=== PATIENT | female | born 1965 | race Caucasian/White ===

== ENCOUNTER 2023-05-27 17:11 | Inpatient (IN) | payer OTHER ==
[~2023-05-27] VITALS: Ht 165.1 cm; Wt 95.9 kg
[2023-05-27 17:11] VITALS: BP_SYST 145; PULSE 94; RESP 18; TEMP 97.6; O2SAT 99
[2023-05-27 18:33] LABS: EOSINOPHILS # (AUTO) 0.1 K/uL (0.0-0.4); LYMPHOCYTES # (AUTO) 2.6 K/uL (1.0-5.5); NEUTROPHILS # (AUTO) 14.6 K/uL (1.8-7.7); RED CELL DISTRIBUTION WIDTH 13.4 % (9.0-15.0); WHITE BLOOD COUNT (AUTO) 18.3 K/uL (4.8-10.8)
[2023-05-27 18:37] LABS: BASOPHILS # (AUTO) 0.1 K/uL (0.0-0.2); BASOPHILS % (AUTO) 0.4 % (0.0-2.0); EOSINOPHILS % (AUTO) 0.4 % (0.0-4.0); HEMATOCRIT 42.8 % (36-48); HEMOGLOBIN 14.6 g/dL (12.0-16.0); MEAN CORPUSCULAR HEMOGLOBIN 28 pg (27-31); MEAN CORPUSCULAR HGB CONC 34 % (32-36); MEAN CORPUSCULAR VOLUME 82 fL (79.0-98.0); MONOCYTES % (AUTO) 5.7 % (1.7-9.3); NEUTROPHILS % (AUTO) 79.5 % (40.0-70.0); PLATELET COUNT (AUTO) 298 K/uL (130-430); RED BLOOD CELL COUNT(AUTO) 5.21 MIL/uL (4.2-6.2)
[2023-05-27 18:47] LABS: ALANINE AMINOTRANSFERASE 138 U/L (12-78); ALBUMIN 3.9 g/dL (3.4-4.8); ANION GAP 7 (5-15); ASPARTATE AMINOTRANSFERASE 156 U/L (10-37); CALCIUM 9.3 mg/dL (8.4-11.0); CARBON DIOXIDE 29 mmol/L (23-29); CHLORIDE 105 mmol/L (98-107); CREATININE 0.59 mg/dL (0.55-1.30); GFR AFRICAN AMERICAN 135 mL/min (>90); GFR NON AFRICAN-AMERICAN 112 mL/min (>90); GLUCOSE 102 mg/dL (74-106); POTASSIUM 4.1 mmol/L (3.5-5.1); SODIUM SERUM 141 mmol/L (136-145); TOTAL BILIRUBIN 0.8 mg/dL (0.0-1.0); TOTAL PROTEIN, SERUM 8.1 g/dL (6.4-8.3); UREA NITROGEN, BLOOD 15 mg/dL (8-21)
[2023-05-27 18:49] LABS: BILIRUBIN,DIRECT 0.2 mg/dL (0.0-0.3)
[2023-05-27 18:52] LABS: LIPASE 3454 U/L (16-77)
[2023-05-27 19:30] LABS: BILIRUBIN,URINE NEGATIVE (NEGATIVE); BLOOD, URINE NEGATIVE (NEGATIVE); CLARITY/URINE CLEAR (CLEAR); COLOR,URINE YELLOW (YELLOW); GLUCOSE,URINE NEGATIVE (NEGATIVE); KETONES,URINE 1+ (NEGATIVE); LEUKOCYTE ESTERASE ,URINE NEGATIVE (NEGATIVE); NITRITE, URINE NEGATIVE (NEGATIVE); PH,URINE 7.5 (5.0-8.0); PROTEIN URINE NEGATIVE (NEGATIVE); UROBILINOGEN,URINE 0.2 (0.2-1.0)
[2023-05-27] MEDS: NACL 0.9% 1,000 ML IV ONE (21:23)
[2023-05-27] MEDS: KETOROLAC TROMETHAMINE 30 MG VIAL IVP ONE (21:45)
[2023-05-27] MEDS: ONDANSETRON HCL 4 MG/2 ML VIAL IVP ONE (21:47)
[2023-05-28] MEDS: D5/0.45 NS 1,000 ML IV SCH (00:30)
[2023-05-28] MEDS: cefTRIAXone 1 GM IVPB PREMIX 50 ML IV SCH ×2 (02:15→21:53)
[2023-05-28 04:25] LABS: BASOPHILS # (AUTO) 0.2 K/uL (0.0-0.2); BASOPHILS % (AUTO) 1.4 % (0.0-2.0); EOSINOPHILS # (AUTO) 0.4 K/uL (0.0-0.4); EOSINOPHILS % (AUTO) 3.8 % (0.0-4.0); HEMATOCRIT 38.4 % (36-48); HEMOGLOBIN 12.4 g/dL (12.0-16.0); LYMPHOCYTES % (AUTO) 46.6 % (20.5-51.5); MEAN CORPUSCULAR HEMOGLOBIN 31 pg (27-31); MEAN CORPUSCULAR HGB CONC 32 % (32-36); MEAN CORPUSCULAR VOLUME 96 fL (79.0-98.0); MONOCYTES # (AUTO) 1.1 K/uL (0.0-1.0); MONOCYTES % (AUTO) 10.8 % (1.7-9.3); NEUTROPHILS % (AUTO) 37.4 % (40.0-70.0); PLATELET COUNT (AUTO) 313 K/uL (130-430); RED BLOOD CELL COUNT(AUTO) 3.99 MIL/uL (4.2-6.2); RED CELL DISTRIBUTION WIDTH 16.2 % (9.0-15.0); WHITE BLOOD COUNT (AUTO) 10.6 K/uL (4.8-10.8)
[2023-05-28 04:35] LABS: CALCIUM 9.9 mg/dL (8.4-11.0); CREATININE 1.37 mg/dL (0.55-1.30); POTASSIUM 4.4 mmol/L (3.5-5.1)
[2023-05-28 04:47] LABS: ALBUMIN 3.8 g/dL (3.4-4.8); THYROID STIMULATING HORMONE 3.2 uIu/mL (0.34-4.82); TOTAL BILIRUBIN 0.4 mg/dL (0.0-1.0); TOTAL PROTEIN, SERUM 7.9 g/dL (6.4-8.3)
[2023-05-28] MEDS: ONDANSETRON HCL 4 MG/2 ML VIAL IVP PRN (08:32)
[2023-05-28] MEDS: MORPHINE 2 MG/ML INJ. SYRINGE IVP PRN (08:35)
[2023-05-29 09:55] VITALS: BP_SYST 128; PULSE 78; RESP 20; TEMP 97.1; O2SAT 96
[2023-05-29 16:00] VITALS: BP_SYST 124; PULSE 81; RESP 20; TEMP 97.4; O2SAT 98
[2023-05-29 19:00] VITALS: O2SAT 96
[2023-05-29 20:00] VITALS: BP_SYST 139; PULSE 76; RESP 18; TEMP 98.7; O2SAT 95
[2023-05-30] VITALS (7 sets, daily range): BP systolic 107–124; PULSE 63–95; RESP 16–18; TEMP 97.4–98.4; O2SAT 92–99
[2023-05-30 06:06] LABS: BASOPHILS % (AUTO) 0.4 % (0.0-2.0); EOSINOPHILS # (AUTO) 0.3 K/uL (0.0-0.4); EOSINOPHILS % (AUTO) 4.2 % (0.0-4.0); HEMATOCRIT 37.8 % (36-48); HEMOGLOBIN 13.2 g/dL (12.0-16.0); LYMPHOCYTES # (AUTO) 2.7 K/uL (1.0-5.5); LYMPHOCYTES % (AUTO) 33.6 % (20.5-51.5); MEAN CORPUSCULAR HEMOGLOBIN 29 pg (27-31); MEAN CORPUSCULAR HGB CONC 35 % (32-36); MEAN CORPUSCULAR VOLUME 82 fL (79.0-98.0); MONOCYTES # (AUTO) 0.5 K/uL (0.0-1.0); MONOCYTES % (AUTO) 6.6 % (1.7-9.3); NEUTROPHILS # (AUTO) 4.4 K/uL (1.8-7.7); NEUTROPHILS % (AUTO) 55.2 % (40.0-70.0); PLATELET COUNT (AUTO) 260 K/uL (130-430); RED BLOOD CELL COUNT(AUTO) 4.63 MIL/uL (4.2-6.2); RED CELL DISTRIBUTION WIDTH 13.6 % (9.0-15.0)
[2023-05-30 06:27] LABS: CALCIUM 8.8 mg/dL (8.4-11.0); CREATININE 0.63 mg/dL (0.55-1.30); POTASSIUM 3.4 mmol/L (3.5-5.1)
[2023-05-30 08:02] LABS: INR 1.1 (0.8-1.2); PROTHROMBIN TIME 10.9 SECS (9.5-12.5)
[2023-05-30] MEDS ORDERED: LIDOCAINE VISCOUS 2%, 15 ML UDC MM PRN (12:15)
[2023-05-30] MEDS ORDERED: METOCLOPRAMIDE HCL 10 MG/2 ML VIAL ONE (15:10)
[2023-05-30] MEDS ORDERED: LIDOCAINE 2%, 20 ML MDV ONE (15:10)
[2023-05-30] MEDS ORDERED: WATER FOR IRRIGATION,STERILE 1,000 ML IRRIG.SOLN IR ONE (15:10)
[2023-05-30] MEDS ORDERED: PHENYLEPHRINE HCL 10 MG/ML VIAL (NEOSYNEPHRINE) ONE (15:10)
[2023-05-30] MEDS ORDERED: ROCURONIUM BROMIDE 10 MG/ML (ZEMURON) ONE (15:10)
[2023-05-30] MEDS ORDERED: LR 1,000 ML IV.SOLN IV ONE (15:10)
[2023-05-30] MEDS ORDERED: BUPIVACAINE /PF 0.5% 30 ML VIAL ONE (15:10)
[2023-05-30] MEDS ORDERED: fentaNYL CITRATE/PF 100 MCG/2 ML AMP ONE (15:10)
[2023-05-30] MEDS ORDERED: ONDANSETRON HCL 4 MG/2 ML VIAL ONE (15:10)
[2023-05-30] MEDS ORDERED: PROPOFOL 200MG/ 20ML VIAL (DIPRIVAN) IV ONE (15:10)
[2023-05-30] MEDS ORDERED: CEFAZOLIN 2 GM IVPB PREMIX 50 ML IV ONE (15:10)
[2023-05-30] MEDS ORDERED: SEVOFLURANE 15 MIN GAS INH ONE (15:10)
[2023-05-30] MEDS ORDERED: GLYCOPYRROLATE 0.2 MG/ML VIAL ONE (15:10)
[2023-05-30] MEDS ORDERED: ePHEDrine sulfate 50 MG/ML VIAL ONE (15:10)
[2023-05-30] MEDS ORDERED: NS 1000 ML IV.SOLN IV ONE (15:10)
[2023-05-30] MEDS ORDERED: MIDAZOLAM HCL 5 MG/ML VIAL (VERSED) IV ONE (15:10)
[2023-05-30] MEDS ORDERED: NS IRRIG SOLN 1000 ML IR ONE (15:10)
[2023-05-30] MEDS ORDERED: HYDROmorphone 2 MG/ML VIAL IVP PRN (15:15)
[2023-05-30] MEDS: LR 1,000 ML IV SCH (15:15)
[2023-05-30] MEDS ORDERED: ONDANSETRON HCL 4 MG/2 ML VIAL IVP PRN (15:15)
[2023-05-30] MEDS ORDERED: KETOROLAC TROMETHAMINE 30 MG VIAL IVP PRN (15:15)
[2023-05-30] MEDS ORDERED: HYDROmorphone 1 MG/ML INJ. CARTRIDGE IVP PRN (15:15)
[2023-05-30] MEDS: MORPHINE 4 MG INJ. 4 MG/ML VIAL IVP PRN (21:30)
[2023-05-31] VITALS: BP_SYST 99; PULSE 89; RESP 18; TEMP 97.7; O2SAT 99
[2023-05-31 04:00] VITALS: BP_SYST 117; PULSE 79; RESP 18; TEMP 97.5; O2SAT 99
[2023-05-31 05:32] LABS: BASOPHILS % (AUTO) 0.4 % (0.0-2.0); EOSINOPHILS # (AUTO) 0.3 K/uL (0.0-0.4); EOSINOPHILS % (AUTO) 2.9 % (0.0-4.0); HEMATOCRIT 36.6 % (36-48); HEMOGLOBIN 12.7 g/dL (12.0-16.0); LYMPHOCYTES # (AUTO) 2.7 K/uL (1.0-5.5); LYMPHOCYTES % (AUTO) 31.3 % (20.5-51.5); MEAN CORPUSCULAR HEMOGLOBIN 28 pg (27-31); MEAN CORPUSCULAR HGB CONC 35 % (32-36); MEAN CORPUSCULAR VOLUME 82 fL (79.0-98.0); MONOCYTES # (AUTO) 0.6 K/uL (0.0-1.0); MONOCYTES % (AUTO) 6.5 % (1.7-9.3); NEUTROPHILS # (AUTO) 5.1 K/uL (1.8-7.7); NEUTROPHILS % (AUTO) 58.9 % (40.0-70.0); PLATELET COUNT (AUTO) 285 K/uL (130-430); RED BLOOD CELL COUNT(AUTO) 4.48 MIL/uL (4.2-6.2); RED CELL DISTRIBUTION WIDTH 13.6 % (9.0-15.0); WHITE BLOOD COUNT (AUTO) 8.7 K/uL (4.8-10.8)
[2023-05-31 06:35] LABS: ALBUMIN 2.9 g/dL (3.4-4.8); CALCIUM 8.7 mg/dL (8.4-11.0); CREATININE 0.76 mg/dL (0.55-1.30); POTASSIUM 3.3 mmol/L (3.5-5.1); TOTAL BILIRUBIN 0.4 mg/dL (0.0-1.0); TOTAL PROTEIN, SERUM 6.7 g/dL (6.4-8.3)
[2023-05-31 08:00] VITALS: BP_SYST 113; PULSE 75; RESP 18; TEMP 98; O2SAT 94
[2023-05-31] MEDS: ENOXAPARIN SODIUM 40 MG/0.4 ML SYRINGE SUBCUT SCH (08:45)
[2023-05-31] MEDS: HYDROcodone/ACETAMIN 5-325 MG TAB (NORCO/ VICODIN) PO PRN (09:25)
[2023-05-31] MEDS ORDERED: HYDR-3917 PO (10:11)
[2023-05-31] MEDS ORDERED: ONDA-8 TL (10:11)
[2023-05-31] MEDS ORDERED: AMOX500C2 PO (10:11)
[2023-05-31] MEDS ORDERED: IBUP-1969 PO (10:13)
[2023-05-31 11:06] VITALS: BP_SYST 114; PULSE 65; RESP 16; TEMP 96.6; O2SAT 94
[2023-05-31 14:18] VITALS: BP_SYST 118; PULSE 77; RESP 18; TEMP 98.1; O2SAT 97
== END 2023-05-31 14:40 | disposition home or self-care (01) | DRG 263 ==
LOC: SED 17:11 → SMU 21:33
PROVIDERS: ADMIT Internal Medicine; ATTEND Internal Medicine
PROC: 0DNU4ZZ Release Omentum, Percutaneous Endoscopic Approach (ICD-10-PCS; 2023-05-30)
PROC: 0FT44ZZ Resection of Gallbladder, Percutaneous Endoscopic Approach (ICD-10-PCS; principal; 2023-05-30 13:27)
DX: K85.10 Biliary acute pancreatitis without necrosis or infection (principal); R65.10 Systemic inflammatory response syndrome (SIRS) of non-infectious origin without acute organ dysfunction; E03.9 Hypothyroidism, unspecified; K80.20 Calculus of gallbladder without cholecystitis without obstruction; E66.9 Obesity, unspecified; R74.01 Elevation of levels of liver transaminase levels; I10 Essential (primary) hypertension; Z98.51 Tubal ligation status; Z68.35 Body mass index [BMI] 35.0-35.9, adult
CPT/HCPCS: 36415; 71045; 74181; 76705; 80048; 80053; 80061; 80076; 81001; 81003; 82150; 83690; 84443; 84484; 85025; 85610; 85730; 86886; 86900; 86901; 87040; 87081; 88304; 93005; 93971; 94010; 96361; 96374; 96375; 99285; C1727; J0690; J0696; J1650; J1885; J2001; J2250; J2270; J2370; J2405; J2704; J2765; J3010; J3490; J7030; J7120